=== PATIENT | female | born 1960 | race Caucasian/White ===

== ENCOUNTER 2017-05-13 17:54 | Emergency (ER) | payer OTHER ==
[2017-05-13 18:06] VITALS: TEMP 97.9
--- NOTE | 2017-05-13 18:07 | EDPHY ---
H & P Stated Complaint: Fall while hiking Time Seen by Provider: 05/13/17 18:06 HPI/ROS: HPI: This is a 56-year-old female who presents with Chief Complaint: Fall while hiking Location: Right knee Quality: Injury Duration: Prior to arrival Signs and Symptoms: No bleeding, no radiation, no numbness, no weakness, no tingling, no incontinence, + decreased range of motion, + swelling, + pain Timing: Acute Severity: 10/20 Context: Patient is generally healthy, was while hiking with her when she accidentally slipped on the muddy trail falling forward and landing directly on her right anterior knee with immediate, constant, severe, nonradiating pain. She did hit her face on the dirt and sustained abrasions to the left side of her cheek and left eyebrow. She denies LOC/neck pain/headache/ nausea/vomiting. He remembers all the events surrounding the injury. witnessed the fall. Patient was nonambulatory at the scene due to pain. EMS was called and transported patient to [facility] emergency room for further evaluation. On route pot lesion politely declined IV access and IV pain medications to be given by EMS. Tetanus not up-to-date. Modifying Factors: None Comment: ROS: see HPI Constitutional: No fever, no chills, no weight loss Eyes: No blurred vision Respiratory: No shortness of breath, no cough Cardiovascular: No chest pain Gastrointestinal: No nausea, no vomiting no diarrhea Genitourinary: No dysuria Extremities: No myalgias Neurologic: No weakness, no numbness Skin: No rashes Hematologic: No bruising, no bleeding MEDICAL/SURGICAL/SOCIAL HISTORY: Medical history: Generally healthy. Does not take any regular medications. Surgical history: Denies Social history: . CONSTITUTIONAL: Pleasant adult white female, awake and alert, no obvious distress HEENT: Atraumatic and normocephalic. Abrasions noted to left side of cheek and 1 cm superficial, simple, laceration left upper eyebrow. NECK: supple, no midline tenderness, flexion 45 degrees, extension 45 degrees, right and left lateral flexion 45 degrees. No meningismus. Cardiovascular: Normal S1/S2, regular rate, regular rhythm, without murmur rub or gallop. PULMONARY/CHEST: Symmetrical and nontender. no crepitus. Clear to auscultation bilaterally. Good air movement. No accessory muscle usage. ABDOMEN: Soft, nondistended, nontender, no ecchymosis. PELVIC: no pain with rocking; bilateral hips flexion 125 degrees, extension 30 degrees, with no pain internal rotation and no pain external rotation. BACK: No midline tenderness, no paraspinous spasm, deep tendon reflexes 2/2, no pain with straight leg raise EXTREMITIES: 2/2 DP and PT pulses, strength 5/5, right HIP: Limited due to pain in the knee. Legs are equal in length. Right KNEE: Moderate effusion, + medial and lateral joint line tenderness, full extension to 180; will not flex secondary to pain. Right Ankle: Moderate swelling and bruising. Plantar flexion to 50, dorsiflexion to 20. Foot inversion to 35 degree. Moderate tenderness/swelling Anterior talofibular ligament. No tenderness/swelling Calcaneofibular ligament, no tenderness/swelling posterior talofibular ligament , no tenderness/swelling posterior inferior tibiofibular ligament. Achilles tendon intact. DIP/PIP/MCP flexion/extension intact with good light touch sensation. no deformities, no clubbing, no cyanosis or edema. NEUROLOGICAL: no focal neuro deficits. GCS 15. Light touch sensation intact. SKIN: Warm and dry, no erythema. no rash. Good capillary refill. Source: Patient, Family () Exam Limitations: No limitations - Personal History Current Tetanus/Diphtheria Vaccine: No Current Tetanus Diphtheria and Acellular Pertussis (TDAP): No - Medical/Surgical History Hx Asthma: No Hx Chronic Respiratory Disease: No Hx Diabetes: No Hx Cardiac Disease: No Hx Renal Disease: No Hx Cirrhosis: No Hx Alcoholism: No Hx HIV/AIDS: No Hx Splenectomy or Spleen Trauma: No - Social History Smoking Status: Never smoked Constitutional: Initial Vital Signs Temperature (C) 36.6 C 05/13/17 17:57 Heart Rate 81 05/13/17 17:57 Respiratory Rate 18 05/13/17 17:57 Blood Pressure 137/89 H 05/13/17 17:57 O2 Sat (%) 95 05/13/17 17:57 O2 Delivery Mode Room Air Allergies/Adverse Reactions: No Known Allergies Allergy (Unverified 05/13/17 18:04) Home Medications: Medication Instructions Recorded oxyCODONE/APAP 5/325 [Percocet 1 - 2 tab PO Q4H PRN #20 tab 03/03/18 5/325 (*)] Medical Decision Making - Diagnostics Imaging Results: Imaging Impressions Ankle X-Ray 05/13/17 18:13 Impression: Tibial plateau fracture, lateral greater than medial. CT imaging has been requested, and will be separately performed and reported. Right Ankle Series (3 Views, at 6:29 PM): The osseous structures are intact, without a fracture. The ankle mortise is maintained, and the talar dome has a normal contour. The soft tissues are unremarkable. There is no ankle joint effusion. A portion of the posterior calcaneus was excluded on the crosstable lateral view. The subtalar joint is normal. There is some mild regionalized bone demineralization in the distal tibia and fibula. Consider a DEXA scan when clinically feasible. Impression: Bone demineralization, with no acute fracture. When clinically feasible, a DEXA scan is suggested. Hip X-Ray 05/13/17 18:13 Impression: No acute abnormality identified. If there is progression of the patient's right hip pain, CT or MR imaging could be considered. Knee X-Ray 05/13/17 18:13 Impression: 1. Tibial plateau fracture, with greater involvement laterally than medially, and an associated lipohemarthrosis. 2. Suspect impaction injury of the proximal fibular metaphysis. If there is further clinical concern regarding anatomic assessment, CT imaging with 3D reconstructions could be considered as part of a presurgical planning protocol. Findings were discussed with Evelyn De La Garza PA-C at 20:08, on 05/13/2017. Procedures: Procedure: Splint placement. A right knee immobilizer was applied by the Emergency Room sanitation technician. After application of the splint I returned and re-examined the patient. The splint was adequately immobilizing the joint and distal to the splint the patient's circulation and sensation was intact. Procedure: Laceration repair. Verbal consent was obtained from the patient. The 1 cm superficial simple laceration on the left eyebrow was anesthetized in the usual fashion using let topical. The wound was irrigated, draped and explored to its base with a gloved finger. There were no deep structures involved. No tendon injury was identified. The wound was repaired with Steri-Strips. The procedure was performed by myself. ED Course/Re-evaluation: Patient has politely declined any IV or pain medications at this time. No signs of neurovascular compromise/tenting of skin/compartment syndrome/ extremities and joints examined above and below area of concern and are neurovascularly intact. Patient refused tetanus booster Right knee X-ray at bedside my read shows right tibial plateau fracture Right hip x-ray my read and with attending shows no acute fracture/dislocation Right ankle x-ray my read and with intending shows soft tissue swelling but no fracture/dislocation CT lower extremity without contrast ordered for further evaluation of tibial plateau fracture Placed in knee immobilizer, crutches, rice therapy, pain control, Ortho follow- up in 2-3 days Offered patient hospital admission for pain control and physical therapy. Patient and reports that she broke her ankle in the past and is aware of how to mobilize on crutches. Again offered pain control and she politely declined is only requesting a prescription to take home. Called Dr. Hurtado but in surgery. Waited for over 1 hr for orthopedic consult to discuss and have early follow-up on Monday or Monday the patient is not willing to wait any longer and will be discharged home. Patient refused CT of her knee for further evaluation. She understands the risks and benefits of obtaining this test. 2145: With Dr. Hurtado regarding patient and he will see patient early next week. This patient was seen under the supervision of my secondary supervising physician. I evaluated care for this patient independently. Discussed this patient with Dr. Rey who did not see the patient. Differential Diagnosis: Knee injury while [] including but not limited to fracture, ACL injury, contusion, muscular strain, and meniscus injury. - Data Points Medications Given: Discontinued Medications Acetaminophen (Tylenol) 650 mg PO EDNOW ONE Stop: 05/13/17 19:32 Last Admin: 05/13/17 19:33 Dose: 650 mg Diphtheria/Tetanus/Acell Pertussis (Boostrix) 0.5 ml IM .ONCE ONE Stop: 05/13/17 18:13 Last Admin: 05/13/17 18:37 Dose: Not Given Tetracaine/Epinephrine/Lidocaine (Let Gel Topical) 2 ea TP EDNOW ONE Stop: 05/13/17 18:14 Last Admin: 05/13/17 18:40 Dose: 2 ea Tetracaine/Epinephrine/Lidocaine (Let Gel Topical) 1 ea TP EDNOW ONE Stop: 05/13/17 18:13 Last Admin: 05/13/17 18:15 Dose: Not Given Departure - Departure Disposition: Home, Routine, Self-Care Clinical Impression: Right medial tibial plateau fracture Qualifiers: Encounter type: initial encounter Fracture type: closed Qualified Code(s): S82.131A - Displaced fracture of medial condyle of right tibia, initial encounter for closed fracture Condition: Good Instructions: Oxycodone/Acetaminophen (By mouth), R.I.C.E. Treatment (ED), Knee Immobilizer (ED), Steristrips (ED) Additional Instructions: Wear the knee immobilizer 03/10 except to shower. Use crutches to aid weight-bearing as you are to be nonweightbearing. Take Tylenol 650 mg every 4 hours and/or Ibuprofen 600 mg every 8 hours with food as needed for pain. Use Percocet every 6 hours as needed for severe/break through pain. Do not use Tylenol and Percocet concomitantly. Apply ice for 30 minutes at a time; 2-3 times per day for the next 1-2 days. Follow up with Orthopedics in 2 days at which time they will evaluate and recommend with you if conservative management versus surgery is indicated. Return to the ER immediately if you experience new or worsening pain, discoloration, numbness, tingling, or any other symptoms that concern you. Referrals: Mallory Hurtado MD [Medical Doctor] - 1-2 days without fail Prescriptions: oxyCODONE/APAP 5/325 [Percocet 5/325 (*)] 1 - 2 tab PO Q4H PRN #20 tab PRN Reason: Pain, Severe
[2017-05-13] MEDS ORDERED: TDAP ADULT 0.5 ML INJ (BOOSTRIX) IM ONE (18:12)
[2017-05-13] MEDS ORDERED: LET GEL TOPICAL 1 EA SYR TP ONE ×2 (18:12→18:13)
[2017-05-13] MEDS ORDERED: ACETAMINOPHEN 325 MG TAB PO ONE (19:31)
[2017-05-13 20:22] VITALS: BP 136/73; PULSE 70; RESP 18; O2SAT 98
== END 2017-05-13 20:33 | disposition home or self-care (01) ==
LOC: EDUNIT#
DX: S82.131A Displaced fracture of medial condyle of right tibia, initial encounter for closed fracture (principal); W01.0XXA Fall on same level from slipping, tripping and stumbling without subsequent striking against object, initial encounter; Y92.89 Other specified places as the place of occurrence of the external cause; Y93.01 Activity, walking, marching and hiking
CPT/HCPCS: L1830